=== PATIENT | male | born 1995 | race Caucasian/White ===

== ENCOUNTER 2018-11-27 17:20 | Emergency (ER) | payer OTHER ==
--- OUTSIDE RECORDS SUMMARY | 2018-11-27 17:23 | XMS REPORT ---
:1995 [facility] [address] [place] [address] Care Team Providers Name Role Phone Unavailable Unavailable Unavailable Problems This patient has no known problems. Allergies, Adverse Reactions, Alerts This patient has no known allergies or adverse reactions. Medications This patient has no known medications.
[2018-11-27 18:21] LABS: Absolute Lymphocytes (CBC) 1.3 K/uL (0.7-4.9); Absolute Monocytes 0.8 K/uL (0.1-1.3); Absolute Neutrophil 6.3 K/uL (1.8-8.0); Basophils % 0.7 % (0-1.3); Eosinophils % 0.6 % (0-4.4); Hematocrit 39.3 % (39.6-49.0); Lymphocytes % 15.5 % (15.3-44.8); MPV 8.5 fL (7.6-11.3); Monocytes % 9.1 % (3.3-12.3); RBC Red Blood Cell Count 4.49 M/uL (4.33-5.43)
[2018-11-27 18:27] LABS: Protime INR 1.08
[2018-11-27 18:33] LABS: Barbiturates NEGATIVE (NEGATIVE); Benzodiazepines NEGATIVE (NEGATIVE); Cocaine NEGATIVE (NEGATIVE); METHAMPHETAM NEGATIVE (NEGATIVE); Methadone NEGATIVE (NEGATIVE); Opiates NEGATIVE (NEGATIVE); Phencyclidine NEGATIVE (NEGATIVE); THC Cannibis POSITIVE (NEGATIVE)
[2018-11-27 18:59] LABS: ALT/SGPT 24 U/L (12-78); AST/SGOT 21 U/L (15-37); Albumin 3.9 g/dL (3.4-5.0); Alkaline Phosphatase 82 U/L (45-117); BUN Blood Urea Nitrogen 5 mg/dL (7-18); Bicarbonate 26 mmol/L (21-32); Bilirubin Direct 0.2 mg/dL (0-0.2); Bilirubin Total 0.7 mg/dL (0.2-1.0); Glucose Level 72 mg/dL (74-106); Potassium 3.6 mmol/L (3.5-5.1); Protein, Total 7.6 g/dL (6.4-8.2); Sodium Level 133 mmol/L (136-145)
--- NOTE | 2018-11-27 19:52 | ER ---
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 17:49 Transition of care: patient was not received from another setting of care. Onset of ph symptoms was November 27, 2018. Risk Assessment: Do you want to hurt yourself or someone else? Patient reports no desire to harm self or others. Initial Sepsis Screen: Does the patient meet any 2 criteria? No. Patient's initial sepsis screen is negative. Does the patient have a suspected source of infection? No. Patient's initial sepsis screen is negative. Care prior to arrival: None. 17:49 Acuity: ELISABETH 2 ph 17:49 Method Of Arrival: Ambulatory ph Historical: - Allergies: 17:40 No Known Allergies; iw - PMHx: 17:40 Bipolar disorder; iw - Immunization history:: Adult Immunizations. - Ebola Screening: : Patient negative for fever greater than or equal to 101.5 degrees Fahrenheit, and additional compatible Ebola Virus Disease symptoms Patient denies exposure to infectious person Patient denies travel to an Ebola-affected area in the 21 days before illness onset No symptoms or risks identified at this time. - Social history:: Smoking status: unknown. Screenin:44 Abuse screen: Denies threats or abuse. Denies injuries from another. Nutritional ph screening: No deficits noted. Tuberculosis screening: No symptoms or risk factors identified. Fall Risk None identified. Assessment: 17:44 General: Appears in no apparent distress. comfortable, slender, Behavior is calm, ph cooperative, appropriate for age. Pain: Denies pain. Neuro: Level of Consciousness is awake, alert, obeys commands, Oriented to person, place, time, situation. Cardiovascular: Capillary refill < 3 seconds in bilateral fingers Patient's skin is warm and dry. Respiratory: Airway is patent Respiratory effort is even, unlabored. GI: No signs and/or symptoms were reported involving the gastrointestinal system. Derm: Skin is intact, is healthy with good turgor, Skin is pink, warm \\T\\ dry. Musculoskeletal: Circulation, motion, and sensation intact. Range of motion: intact in all extremities. 19:06 Reassessment: Patient appears in no apparent distress at this time. Patient and/or ph family updated on plan of care and expected duration. Pain level reassessed. Patient is alert, oriented x 3, equal unlabored respirations, skin warm/dry/pink. Pt resting quietly, family at bedside. 19:17 Reassessment: Patient appears in no apparent distress at this time. No changes from ak1 previously documented assessment. Patient and/or family updated on plan of care and expected duration. Pain level reassessed. Patient is alert, oriented x 3, equal unlabored respirations, skin warm/dry/pink. family at bedside, sitter at bedside. pt calm and cooperative. Psych: 17:46 Subjective: Patient's mood is sad, Delusions are denied, Having thoughts of suicide. ph Plan for suicide is pt states, " I was going to cut my wrist but I couldn't bring myself to do it." PD reports that pt also stated that he was going to jump off of a bridge. Objective: Patient is cooperative, Speech is normal, Affect is appropriate. Interventions: Removed personal items and placed in bag. Patient placed in hospital gown. Searched person for dangerous items. Urine collected and sent for urine drug test. Belonging list filled out. Suicide Risk Assessment: Sad Person Scale: Sex of patient: Male: Score 1 point. Age of patient: Score 1 point if patient 15-34. Depression: Score 1 point if signs of depression are present. Previous Attempt: Score 1 point if patient has previously attempted suicide. Substance Abuse: Score 0 point if patient does not abuse alcohol or drugs. Rational Thinking: Score 0 point if patient has rational thinking. Social Support: Score 0 if social support is present/available. Organized Plan: Score 1 point if patient had a plan in place. Relationship: Score 1 point if patient is , , , or for a single male Chronic Sickness: Score 0 point if patient does not have a chronic illness, debilitating, or severe disorder. TOTAL POINTS: If total points are 5-6, proposed clinical action is to strongly consider hospitalization, depending upon confidence in the follow-up arrangement. Implement suicide precautions. Safety Checks: Personal items have been removed. Door is open. Pt denies substance abuse. 17:52 Commitment: Patient will be an involuntary commitment. ph Vital Signs: 17:42 BP 126 / 92; Pulse 69; Resp 18; Temp 98.1; Pulse Ox 99% on R/A; Weight 70.31 kg; Height ph 6 ft. 1 in. (185.42 cm); 19:54 BP 124 / 80; Pulse 84; Resp 16; Temp 97.4(O); Pulse Ox 99% on R/A; mt 17:42 Body Mass Index 20.45 (70.31 kg, 185.42 cm) ph ED Course: 17:23 Patient arrived in ED. iw 17:27 Bertha Hernandez, RN is Primary Nurse. ph 17:36 Urine collected: clean catch specimen, clear. mh5 17:48 Mauri Veras PA is PHCP. jr8 17:48 Ankur Sepulveda MD is Attending Physician. jr8 17:50 Triage completed. ph 17:50 Arm band placed on. ph 17:51 No provider procedures requiring assistance completed. ph 17:52 Patient has correct armband on for positive identification. Placed in gown. Warm ph blanket given. 18:00 Safety checks: Items removed: yes. Door open/sign placed on door: yes. Family/friend mt present: no. Sitter present: Yes. Other: Velma human resources psychologist, sitting one on one. 18:01 EKG done, by vtc technician. reviewed by Mauri DOBSON. at1 18:09 Inserted saline lock: 20 gauge in left antecubital area, using aseptic technique. Blood mt collected. 18:15 Safety checks: Items removed: yes. Door open/sign placed on door: yes. Family/friend mt present: no. Sitter present: Yes. 18:30 Safety checks: Items removed: yes. Door open/sign placed on door: yes. Family/friend mt present: no. Sitter present: Yes. 18:45 Safety checks: Items removed: yes. Door open/sign placed on door: yes. Family/friend mt present: no. Sitter present: Yes. 19:00 Safety checks: Items removed: yes. Door open/sign placed on door: yes. Family/friend mt present: yes. Sitter present: Yes. 19:15 Safety checks: Items removed: yes. Door open/sign placed on door: yes. Family/friend mt present: yes. Sitter present: Yes. 19:30 Safety checks: Items removed: yes. Door open/sign placed on door: yes. Family/friend mt present: yes. Sitter present: Yes. 19:45 Safety checks: Items removed: yes. Door open/sign placed on door: yes. Family/friend mt present: no. Sitter present: Yes. 19:58 IV discontinued, intact, bleeding controlled, No redness/swelling at site. Pressure ak1 dressing applied. Administered Medications: No medications were administered Outcome: 19:49 Condition: stable ak1 19:51 Discharge ordered by . new 19:58 Discharged to home ambulatory, with family, pt waiting on his brother's to come ak1 pick him up. 19:58 Discharge instructions given to patient, Instructed on discharge instructions, follow up and referral plans. Demonstrated understanding of instructions, follow-up care. 20:04 Patient left the ED. ak1 Signatures: Martha Patel RN RN Mauri Veras PA PA jr8 Diana Hannah, compressor operator portable EKG Tat1 Megan Randall RN RN ak1 Bertha Hernandez RN RN Renard, Kaylah [facility] Celio, Velma hi Corrections: (The following items were deleted from the chart) 19:56 19:54 BP 124 / 80; Pulse 84bpm; Resp 16bpm; Pulse Ox 99% RA; mt mt
--- NOTE | 2018-11-27 19:52 | EDPHYS ---
Physician Documentation [facility] Name: Terell Nieto Age: 23 yrs Sex: Male : 1995 Arrival Date: 11/27/2018 Time: 17:23 Bed 15 Private MD: ED Physician Ankur Sepulveda HPI: 11/27 18:32 This 23 yrs old Male presents to ER via Ambulatory with complaints of jr8 Suicidal Ideation. 18:32 The patient presents to the emergency department with depression. Onset: The jr8 symptoms/episode began/occurred acutely, today. Past psychiatric history: Prior diagnosis: bipolar disorder. Associated signs and symptoms: The patient has no apparent associated signs or symptoms. Severity of symptoms: At their worst the symptoms were moderate in the emergency department the symptoms have improved. The patient has experienced similar episodes in the past, several times. The patient has not recently seen a physician. Patient with history of Bipolar disorder. Stated that he had a break up with his girlfriend that he was going to . Thought about killing himself but knows he cannot go through with it. Stated that he has tried multiple times in past and never could do it. Stated that he loves his family too much and could never put them through that pain. Currently under the care of a psychiatrist and on medication. Historical: - Allergies: 17:40 No Known Allergies; iw - PMHx: 17:40 Bipolar disorder; iw - Immunization history:: Adult Immunizations. - Ebola Screening: : Patient negative for fever greater than or equal to 101.5 degrees Fahrenheit, and additional compatible Ebola Virus Disease symptoms Patient denies exposure to infectious person Patient denies travel to an Ebola-affected area in the 21 days before illness onset No symptoms or risks identified at this time. - Social history:: Smoking status: unknown. ROS: 18:32 Eyes: Negative for injury, pain, redness, and discharge, ENT: Negative for injury, jr8 pain, and discharge, Neck: Negative for injury, pain, and swelling, Cardiovascular: Negative for chest pain, palpitations, and edema, Respiratory: Negative for shortness of breath, cough, wheezing, and pleuritic chest pain, Abdomen/GI: Negative for abdominal pain, nausea, vomiting, diarrhea, and constipation, Back: Negative for injury and pain, MS/Extremity: Negative for injury and deformity, Skin: Negative for injury, rash, and discoloration, Neuro: Negative for headache, weakness, numbness, tingling, and seizure. 18:32 Psych: Positive for depression, suicidal ideation. Exam: 18:32 Eyes: Pupils equal round and reactive to light, extra-ocular motions intact. Lids and jr8 lashes normal. Conjunctiva and sclera are non-icteric and not injected. Cornea within normal limits. Periorbital areas with no swelling, redness, or edema. ENT: Nares patent. No nasal discharge, no septal abnormalities noted. Tympanic membranes are normal and external auditory canals are clear. Oropharynx with no redness, swelling, or masses, exudates, or evidence of obstruction, uvula midline. Mucous membranes moist. Neck: Trachea midline, no thyromegaly or masses palpated, and no cervical lymphadenopathy. Supple, full range of motion without nuchal rigidity, or vertebral point tenderness. No Meningismus. Cardiovascular: Regular rate and rhythm with a normal S1 and S2. No gallops, murmurs, or rubs. Normal PMI, no JVD. No pulse deficits. Respiratory: Lungs have equal breath sounds bilaterally, clear to auscultation and percussion. No rales, rhonchi or wheezes noted. No increased work of breathing, no retractions or nasal flaring. Abdomen/GI: Soft, non-tender, with normal bowel sounds. No distension or tympany. No guarding or rebound. No evidence of tenderness throughout. Back: No spinal tenderness. No costovertebral tenderness. Full range of motion. Skin: Warm, dry with normal turgor. Normal color with no rashes, no lesions, and no evidence of cellulitis. MS/ Extremity: Pulses equal, no cyanosis. Neurovascular intact. Full, normal range of motion. Neuro: Awake and alert, GCS 15, oriented to person, place, time, and situation. Cranial nerves II-XII grossly intact. Motor strength 5/5 in all extremities. Sensory grossly intact. Cerebellar exam normal. Normal gait. 18:32 Psych: Behavior/mood is cooperative, depressed, Affect is calm, Oriented to person, place, time, see HPI, Judgement / Insight is normal. Memory is normal. Delusions/hallucinations are not present. Vital Signs: 17:42 BP 126 / 92; Pulse 69; Resp 18; Temp 98.1; Pulse Ox 99% on R/A; Weight 70.31 kg; Height ph 6 ft. 1 in. (185.42 cm); 19:54 BP 124 / 80; Pulse 84; Resp 16; Temp 97.4(O); Pulse Ox 99% on R/A; mt 17:42 Body Mass Index 20.45 (70.31 kg, 185.42 cm) ph MDM: 18:00 Patient medically screened. [facility] 19:47 Data reviewed: vital signs, nurses notes, lab test result(s), EKG. Data interpreted: jr8 Pulse oximetry: on room air is 99 %. Interpretation: normal. Counseling: I had a detailed discussion with the patient and/or guardian regarding: the historical points, exam findings, and any diagnostic results supporting the discharge/admit diagnosis, lab results, the need for outpatient follow up, a psychiatrist, to return to the emergency department if symptoms worsen or persist or if there are any questions or concerns that arise at home. ED course: Reevaluated patient. Patient feeling better. Sad about breakup but again not suicidal and knows he could never act on any thoughts. Will be staying with close friend for next few days and knows to come back if worse . 11/27 17:52 Order name: Urine Dipstick--Ancillary (enter results); Complete Time: 20:00 11/27 18:00 Order name: Acetaminophen; Complete Time: 19:20 [facility] 11/27 18:00 Order name: Basic Metabolic Panel; Complete Time: 19:20 [facility] 11/27 18:00 Order name: CBC with Diff; Complete Time: 18:37 [facility] 11/27 18:00 Order name: ETOH Level; Complete Time: 18:48 [facility] 11/27 18:00 Order name: Hepatic Function; Complete Time: 19:20 [facility] 11/27 18:00 Order name: PT-INR; Complete Time: 18:37 [facility] 11/27 18:00 Order name: Ptt, Activated; Complete Time: 18:37 [facility] 11/27 18:00 Order name: Salicylate; Complete Time: 18:48 [facility] 11/27 18:00 Order name: Urine Drug Screen; Complete Time: 18:37 [facility] 11/27 18:00 Order name: EKG; Complete Time: 18:01 [facility] 11/27 18:00 Order name: EKG - Nurse/Tech; Complete Time: 18:00 11/27 18:00 Order name: IV Saline Lock; Complete Time: 18:09 11/27 18:00 Order name: Labs collected and sent; Complete Time: 18:09 11/27 18:00 Order name: Urine Dipstick-Ancillary (obtain specimen); Complete Time: 18: Administered Medications: No medications were administered Disposition: 11/27/18 19:51 Discharged to Home. Impression: Bipolar disorder, current episode depressed, moderate. - Condition is Stable. - Discharge Instructions: Bipolar Disorder, Suicidal Feelings: How to Help Yourself, Helping Someone Who is Suicidal, Major Depressive Disorder. - Medication Reconciliation Form, Thank You Letter, Antibiotic Education, Prescription Opioid Use form. - Follow up: Private Physician; When: 2 - 3 days; Reason: Recheck today's complaints, Continuance of care, Re-evaluation by your physician. - Problem is new. - Symptoms have improved. Addendum: 11/30/2018 08:30 Co-signature as Attending Physician, Ankur Sepulveda MD I agree with the assessment and k dr plan of care. Signatures: Dispatcher [employer] EDMS Ankur Sepulveda MD MD kdr Martha Patel RN RN Mauri Veras PA PA jr8 Megan Randall RN RN ak1 Bertha Hernandez RN RN ph Corrections: (The following items were deleted from the chart) 11/27 18:36 18:32 Patient with history of Bipolar disorder. Stated that he had a break up with his jr8 girlfriend that he was going to . Thought about killing himself but knows he cannot go through with it. Stated that he has tried multiple times in past and never could do it. Currently under the care of a psychiatrist and on medication. jr8 20:04 19:51 11/27/2018 19:51 Discharged to Home. Impression: Bipolar disorder, current ak1 episode depressed, moderate. Condition is Stable. Forms are Medication Reconciliation Form, Thank You Letter, Antibiotic Education, Prescription Opioid Use. Follow up: Private Physician; When: 2 - 3 days; Reason: Recheck today's complaints, Continuance of care, Re-evaluation by your physician. Problem is new. Symptoms have improved. jr8
[2018-11-27 19:56] LABS: Urine Blood NEGATIVE (NEG); Urine Glucose NEGATIVE (NEG); Urine Protein NEGATIVE (NEG)
--- NOTE | 2018-11-28 09:44 | EKG ---
Test Date: 2018-11-27 Test Time: 17:55:49 Ends Breakage Clerk: ROSELINE MEASUREMENT RESULTS: Intervals: Rate: 63 VT: 130 QRSD: 96 QT: 396 QTc: 405 [place]: P: 69 VT: 130 QRS: 76 T: 62 INTERPRETIVE STATEMENTS: Normal sinus rhythm Normal ECG Compared to ECG 07/19/2008 16:08:34 T-wave abnormality no longer present Electronically Signed On 11-28-18 09:42:56 CDT by Arthur Baron
== END 2018-11-27 20:04 | disposition home or self-care (01) ==
LOC: ER 17:20
DX: F31.32 Bipolar disorder, current episode depressed, moderate (principal)
CPT/HCPCS: 36415; 80048; 80076; 80307; 80320; 80329; 81003; 85025; 85610; 85730; 93005; 99284

== ENCOUNTER 2020-11-22 13:05 | Emergency (ER) | payer OTHER ==
--- OUTSIDE RECORDS SUMMARY | 2020-11-22 13:07 | XMS REPORT | Continuity of Care Document ---
:[address] [facility] t Address [address] [place] [id number] Care Team Providers Name Role Phone Unavailable Unavailable Unavailable Problems This patient has no known problems. Allergies, Adverse Reactions, Alerts This patient has no known allergies or adverse reactions. Medications This patient has no known medications. Procedures This patient has no known procedures. Results This patient has no known results.
--- NOTE | 2020-11-22 15:12 | RAD REPORT ---
EXAM DESCRIPTION: RAD - Hand Right 3 View - 11/22/2020 3:02 pm CLINICAL HISTORY: Pain;Swelling, hand trauma COMPARISON: Hand Right 3 View dated 06/13/2014 FINDINGS: No acute fracture changes are identifiable. There is no dislocation or periosteal reaction noted. Patient is flexed at the fifth DIP joint. 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 Small lucent focus seen along the radial side base fourth metacarpal is n ot believed to be acute nor of long-term clinical significance. No foreign body seen. Soft tissue swelling is present over the dorsum of the hand. IMPRESSION: As detailed above, right hand soft tissue swelling is present but no acute bone or joint finding suspected.
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
--- NOTE | 2020-11-22 16:51 | EDPHYS ---
Physician Documentation [facility] Name: Terell Nieto Age: 25 yrs Sex: Male : 1995 Arrival Date: 11/22/2020 Time: 13:07 Bed 3 Private MD: ED Physician Frank Brooks HPI: 11/22 16:45 This 25 yrs old Male presents to ER via Ambulatory with complaints of Hand rn Injury. 16:45 The patient or guardian reports a contusion, injury, pain. The complaints affect the rn right hand diffusely. 16:45 Onset: The symptoms/episode began/occurred this morning. Modifying factors: The rn symptoms are alleviated by nothing, the symptoms are aggravated by movement. Associated signs and symptoms: Pertinent negatives: numbness distally, tingling distally. Severity of symptoms: At their worst the symptoms were moderate, in the emergency department the symptoms are unchanged. The patient has experienced a previous episode. The patient has not recently seen a physician. Reports punched a tree twice this morning, has broken hand before and has high pain tolerance, so came in for xray.. Historical: - Allergies: 13:32 No Known Allergies; ca1 - PMHx: 13:32 Bipolar disorder; ca1 - PSHx: 13:32 R hand surgery; ca1 - Immunization history:: Last tetanus immunization: unknown, Flu vaccine is not up to date. - Social history:: Smoking status: Patient reports the use of cigarette tobacco products, smokes one pack cigarettes per day. - Family history:: not pertinent. - Hospitalizations: : No recent hospitalization is reported. ROS: 16:45 Constitutional: Negative for fever, chills, and weight loss, MS/Extremity: + right hand rn swelling and pain Skin: + abrasion to right hand Neuro: Negative for weakness, numbness, tingling Exam: 16:45 Constitutional: This is a well developed, well nourished patient who is awake, alert, rn and in no acute distress. Ambulatory to room without difficulty or assistance. MS/ Extremity: Pulses equal, no cyanosis. Neurovascular intact. + right hand swelling with abrasions, no focal tenderness, no laceration. Vital Signs: 13:28 BP 135 / 81; Pulse 81; Resp 18 S; Temp 97.6(TE); Pulse Ox 100% on R/A; Weight 72.57 kg ca1 (R); Height 6 ft. 0 in. (182.88 cm) (R); Pain 4/10; 13:28 Body Mass Index 21.70 (72.57 kg, 182.88 cm) ca1 MDM: 16:36 Patient medically screened. rn 16:45 Differential diagnosis: closed fracture, contusion, abrasion. Data reviewed: vital rn signs, nurses notes, radiologic studies, plain films, and as a result, I will discharge patient. Counseling: I had a detailed discussion with the patient and/or guardian regarding: the historical points, exam findings, and any diagnostic results supporting the discharge/admit diagnosis, radiology results, the need for outpatient follow up, to return to the emergency department if symptoms worsen or persist or if there are any questions or concerns that arise at home. Response to treatment: the patient's symptoms have mildly improved after treatment, and as a result, I will discharge patient. Special discussion: I discussed with the patient/guardian in detail that at this point there is no indication for admission to the hospital. It is understood, however, that if the symptoms persist or worsen the patient needs to return immediately for re-evaluation. 11/22 14:08 Order name: Hand Right 3 View XRAY; Complete Time: 16:37 iw 11/22 16:44 Order name: Wound Care; Complete Time: 16:49 rn 11/22 16:44 Order name: Wound dressing; Complete Time: 16:49 rn Administered Medications: No medications were administered Disposition: 11/22/20 16:51 Discharged to Home. Impression: Contusion of right hand. - Condition is Stable. - Discharge Instructions: Abrasion, Hand Contusion. - Medication Reconciliation Form, Thank You Letter, Antibiotic Education, Prescription Opioid Use form. - Follow up: Private Physician; When: As needed; Reason: Recheck today's complaints, Re-evaluation by your physician. - Problem is new. - Symptoms have improved. Signatures: Dispatcher [employer] Martha Parekh RN RN iw Nieto, Roman, MD MD rn Acob, KANDIS Perrin RN ca1 Corrections: (The following items were deleted from the chart) 17:06 16:51 11/22/2020 16:51 Discharged to Home. Impression: Contusion of right hand. iw Condition is Stable. Forms are Medication Reconciliation Form, Thank You Letter, Antibiotic Education, Prescription Opioid Use. Follow up: Private Physician; When: As needed; Reason: Recheck today's complaints, Re-evaluation by your physician. Problem is new. Symptoms have improved. rn
[2020-11-22 17:13] VITALS: BP 135/81; TEMP 97.6; O2SAT 100
== END 2020-11-22 17:06 | disposition home or self-care (01) ==
LOC: ER 13:05
DX: S60.221A Contusion of right hand, initial encounter (principal); W22.8XXA Striking against or struck by other objects, initial encounter; Y93.89 Activity, other specified; Y92.9 Unspecified place or not applicable; F17.210 Nicotine dependence, cigarettes, uncomplicated
CPT/HCPCS: 99283